=== PATIENT | male | born 1940 | race Caucasian/White ===

== ENCOUNTER 2016-12-28 23:54 | Inpatient (IN) | payer OTHER ==
[~2016-12-28] VITALS: Ht 177.8 cm; Wt 112.2 kg
--- NOTE | 2016-12-29 05:37 | Progress Note ---
Subjective General Admission History and Physical Examination Patient Name: Jessy Burgos Admission Date: December 29, 2016 Primary Care Provider: Merlene RUIZ Attending Physician: Андрей Teague M.D. Admitting Physician: Dion Bunch M.D. Cook Taco: Rajan Renteria M.D. Code Status: FULL CODE Room: [facility] Status: Inpatient, ACU SUBJECTIVE Historian: Patient Reliability: Good Chief Complaint: Abdominal pain History of Present Illness: The patient is a 76-year-old white male with a significant past medical history of COPD, degenerative joint disease, hypertension, allergic rhinitis, who presented to [facility] emergency department on the day of admission secondary to complaints of epigastric/lower chest pain. [facility] ER evaluation was consistent with acute cholecystitis, COPD, anemia, hypertension, degenerative joint disease , hyperglycemia, and allergic rhinitis. Secondary to the above, the patient was admitted by Dion Bunch M.D. surgical consultation by Dr. Rajan Renteria ( general surgery) for further evaluation and treatment. PAST MEDICAL HISTORY Illnesses: 1. COPD 2. Hypertension 3. Degenerative joint disease 4. Allergic rhinitis Allergies: 1. No Known Drug Allergies Medications: 1. Serevent dosage unknown one inhalation twice a day 2. Flovent dosage unknown one inhalation twice a day 3. Albuterol MDI 2 inhalations every 6 hours when necessary shortness of breath 4. Lisinopril dosage unknown one by mouth daily 5. Loratadine dosage unknown one by mouth daily 6. Nabumetone dosage unknown one by mouth twice a day Surgery: 1. None Injuries: 1. Fractured clavicle Hospitalizations: 1. None FAMILY HISTORY Parents: 1. Father, Dion, , 79, emphysema, 2. Mother, Ronit, , 89, also Alzheimer's dementia Siblings: 1. Male, , 73, multiple medical problems Children: 1. Female, , 9, defects 2. Female, living, 46, obesity 3. Male, living, 41, healthy Other significant family history: None SOCIAL HISTORY 1. Marital Status: 2. Scientology: None 3. Education: GED 4. 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 Occupational health exposures: Dust, radiation, asbestos, lead, mercury, loud noises, heavy lifting HABITS 1. Tobacco: 30 pack years, stopped in 1986 2. Drugs: None 3. Alcohol: None 4. Caffeine: None HEALTH SUPERVISION Item/Test 1. Vision screen: 2016 2. Cholesterol Profile: 2016 3. PSA: Unknown 4. ANGELICA: No recent 5. FOBT: No recent 6. Blood Glucose: 2016 7. Colonoscopy: No previous 8. History and physical exam: 2014 9. Audiogram: No previous 10. Mammogram: Not applicable 11. Pap/pelvic exam: Not applicable IMMUNIZATIONS: 1. Pneumococcal: 2015 2. Influenza: 2015 3. Tetanus: Previously obtained with an past 10 years ADVANCED DIRECTIVES: 1. Living well: No 2. POLST: No 3. Code Status: FULL CODE 4. Durable Power Hardware Press Operator Health care: No 5. Donor card: No REVIEW OF SYSTEMS Remarkable for those things stated in the history of present illness and past medical history. Seventeen point review of system completed with the following notable findings: Eyes: Decreased visual acuity requiring corrective lenses Respiratory: Asthma/COPD, wheezing, Physical Exam General Appearance Alert, Oriented X3, Cooperative, No acute distress HEENT Atraumatic, PERRLA, EOMI, Moist mucous membranes Lungs Scattered rhonchi otherwise CTA Neck Supple, No JVD, No masses, No thyromegaly, No lymphadenopathy, 2+ carotid pulse wo bruit Cardiovascular Regular rate and rhythm, Normal S1 and S2, No murmurs, gallops, rubs Abdomen Normal bowel sounds, No rebound, distended, epigastric-RUQ tenderness Extremities No cyanosis, No clubbing, No edema, Normal pulses Neurological Cranial nerves intact, Strength 5/5 x4 ext's, No lateralizing signs , Tremor UE Psych/Mental Status Mental status normal, Mood normal LAB Results Laboratory Tests 12/29 12/29 12/29 0350 0020 0020 Chemistry Plasma Sodium (136 - 145 mmol/L) 142 Plasma Potassium (3.5 - 5.1 mmol/L) 4.3 Plasma Chloride (98 - 107 mmol/L) 106 CO2 (Enzymatic) (21 - 32 mmol/L) 28 BUN (7 - 18 mg/dL) 28 Creatinine (0.6 - 1.3 mg/dL) 1.4 Est GFR ( Amer) (mL/min) >60 Est GFR (Non-Af Amer) (mL/min) 52.51 Glucose (70 - 110 mg/dL) 176 Plasma Calcium (8.5 - 10.1 mg/dL) 9.4 Plasma Magnesium (1.8 - 2.4 mg/dL) 2.3 Total Bilirubin (0.0 - 1.0 mg/dL) 0.9 AST (15 - 37 U/L) 129 ALT (12 - 78 U/L) 94 Alkaline Phosphatase (46 - 116 U/L) 61 Creatine Kinase (24 - 260 U/L) 262 CK-MB (CK-2) (0.5 - 3.2 ng/mL) 3.4 CK/CKMB % Calc (0.0 - 4.0 %) 1.3 Troponin (0.00 - 1.5 ng/mL) <0.05 B-Natriuretic Peptide (5 - 100 pg/ml) 31.9 Total Protein (6.4 - 8.2 g/dL) 7.6 Albumin (3.3 - 5.0 g/dL) 3.7 Coagulation INR (0.8 - 1.2) 1.0 D-Dimer, Quantitative (0.27 - 0.52 ug/mLFEU) 0.55 Hematology WBC (4.5 - 11.5 K/uL) 15.4 RBC (4.50 - 5.90 M/uL) 4.32 Hgb (13.5 - 17.5 gm/dL) 13.4 Hct (41.0 - 53.0 %) 40.2 MCV (80 - 100 fL) 93 MCH (26 - 34 pg) 31 RDW (11.6 - 14.8 %) 13.3 Neut % (Auto) (50 - 75 %) 78.0 Lymph % (Auto) (25 - 40 %) 14.4 [place] % (Auto) (3 - 14 %) 5.1 Eos % (Auto) (0 - 4 %) 2.0 Baso % (Auto) (0 - 2 %) 0.5 Plt Count, EDTA (150 - 400 K/uL) 343 PUBS MCHC (31 - 37 g/dL) 33 Urines Urine Color YELLOW Urine Appearance CLEAR Urine pH (5.0 - 8.0) 5.5 Ur Specific [place] (1.010 - 1.030) <= 1.005 Urine Protein (NEGATIVE) NEGATIVE Urine Ketones (NEGATIVE) TRACE Urine Blood (NEGATIVE) NEGATIVE Urine Nitrite (NEGATIVE) NEGATIVE Urine Bilirubin (NEGATIVE) NEGATIVE Urine Urobilinogen (0.2 - 1.0 EU/dL) 0.2 Ur Leukocyte Esterase (NEGATIVE) NEGATIVE Urine RBC (0 - 1 rbc/hpf) 0-1 Urine WBC (0 - 1 wbc/hpf) 0-1 Ur Epithelial Cells (0 - 5 EPI/hpf) 0-1 Urine Bacteria (NONE SEEN) NONE SEEN Urine Glucose (NEGATIVE) NEGATIVE Urine Comment CULT NOT INDICATED 12/29 0001 Chemistry Lipase (73 - 393 U/L) 186 Assessment and Plan Problem List 1. Acute cholecystitis Status Acute Onset Date 12/27/16 Plan -Patient admitted with findings of acute cholecystitis -Zosyn 3.375 g IV every 6 hours -Dr. Renteria consulted, probable cholecystectomy today -Nothing by mouth -IV fluid support 2. COPD (chronic obstructive pulmonary disease) Status Chronic Onset Date Unknown Plan -Patient with long-standing history of COPD -DuoNeb, albuterol, Flovent -Supplemental oxygen as necessary -Arterial blood gas preoperatively -Monitor 3. Hypertension Status Chronic Onset Date Unknown Plan -Patient with history of hypertension -Blood pressure adequately controlled at this time, BP 123/61 mmHg -Continue outpatient medical regimen as appropriate -Low-salt diet when taking well orally -Monitor 4. DJD (degenerative joint disease) Status Chronic Onset Date Unknown Plan -Patient with history of degenerative joint disease -Not problematic at this time -Continue outpatient medical regimen when taking well orally 5. Anemia Status Acute Onset Date Unknown Plan -Patient with mild normocytic anemia -Check iron studies, B12, folate -Monitor 6. Hyperglycemia Status Acute Onset Date Unknown Plan -patient with findings of hyperglycemia -Check hemoglobin A1c -Blood sugar before meals at bedtime -Insulin sliding scale as necessary -Monitor -Consistent carbohydrate diet when taking orally 7. Prerenal azotemia Status Acute Onset Date Unknown Plan -Azotemia suggestive of prerenal azotemia -BUN/creatinine 28/1.4 -IV fluid therapy -Monitor 8. Rhabdomyolysis Status Acute Onset Date Unknown Plan -Patient with findings of mild rhabdomyolysis -Admission CPK 262, normal MB percent -IV fluid therapy -Monitor Current status: Fair, stable Anticipated discharge date: Anticipated discharge in 2-3 days Anticipated discharge placement: Home Patient care time: Time in chart review, patient interview, physical exam, CPOE, and care documentation: 70 mins Visit to patient today: 2 Complexity of care: High DVT prophylaxis: SCD E&M Codes Admission: Inpt-High/70460
--- NOTE | 2016-12-29 06:08 | Progress Note ---
Subjective General ADVANCED CARE PLAN History of Present Illness The patient is a 76-year-old white male with a significant past medical history of COPD, degenerative joint disease, hypertension, allergic rhinitis, who presented to [facility] emergency department on the day of admission secondary to complaints of epigastric/lower chest pain. [facility] ER evaluation was consistent with acute cholecystitis, COPD, anemia, hypertension, degenerative joint disease , hyperglycemia, and allergic rhinitis. Secondary to the above, the patient was admitted by Dion Bunch M.D. with surgical consultation by Dr. Rajan Renteria ( general surgery) for further evaluation and treatment. For other history present illness, past medical history, family history, social history, review of systems, and admission physical examination please see the patient's history and physical examination and ER visit note in the patient's medical record. A discussion was undertaken with the patient regarding previous advance care arrangements/decisions. The following advanced directives were noted by the patient and discussed with me at the time of admission. ADVANCED DIRECTIVES: 1. Living well: No 2. POLST: No 3. CODE STATUS: FULL CODE 4. Durable Power Interventional Physiatrist [facility] care: No 5. Donor card: No The patient has expressed interest in pursuing full resuscitative efforts at the time of cardiopulmonary arrest. The patient's wishes were documented in the chart and orders regarding the patient's wishes entered into the [employer] CPOE system. The "Advance Care Plan Document" was distributed to patient to discuss with his family. 15-30 minutes was spent in performing the above tasks and documentation of the patient's advanced care plan.
--- NOTE | 2016-12-29 06:08 | Progress Note ---
Subjective General ADVANCED CARE PLAN History of Present Illness The patient is a 76-year-old white male with a significant past medical history of COPD, degenerative joint disease, hypertension, allergic rhinitis, who presented to [facility] emergency department on the day of admission secondary to complaints of epigastric/lower chest pain. [facility] ER evaluation was consistent with acute cholecystitis, COPD, anemia, hypertension, degenerative joint disease , hyperglycemia, and allergic rhinitis. Secondary to the above, the patient was admitted by Dion Bunch M.D. with surgical consultation by Dr. Rajan Renteria ( general surgery) for further evaluation and treatment. For other history present illness, past medical history, family history, social history, review of systems, and admission physical examination please see the patient's history and physical examination and ER visit note in the patient's medical record. A discussion was undertaken with the patient regarding previous advance care arrangements/decisions. The following advanced directives were noted by the patient and discussed with me at the time of admission. ADVANCED DIRECTIVES: 1. Living well: No 2. POLST: No 3. CODE STATUS: FULL CODE 4. Durable Power Undercollar Maker [facility] care: No 5. Donor card: No The patient has expressed interest in pursuing full resuscitative efforts at the time of cardiopulmonary arrest. The patient's wishes were documented in the chart and orders regarding the patient's wishes entered into the [employer] CPOE system. The "Advance Care Plan Document" was distributed to patient to discuss with his family. 15-30 minutes was spent in performing the above tasks and documentation of the patient's advanced care plan.
--- NOTE | 2016-12-29 06:29 | ED NURSING NOTES ---
Clinical Report - Nurses [facility] [address] [place] [address] 12/28/2016 23:55 Patient: Alfredo GRIFFIN TRIAGE Triage time 2358. Acuity: LEVEL 2. Chief Complaint: CHEST PAIN. Alert. SEPSIS SCREEN: Sepsis Screen. Negative (no infection suspected/documented). --00:28 Miguel A Corrales R.N. 23:58 12/28/16. BP: 152/71. HR: 58. RR: 18. O2 saturation: 96%. Temp: 97.6 F. Pain level now: 04/12. --00:28 Miguel A Corrales R.N. Weight: 112.4 kg stated. Height/Length: 70.5 inches Per Patient. BMI: 35.1. --00:22 Miguel A Corrales R.N. Medications Lisinopril Oral (pt munsure of dose ). --00:06 Miguel A Corrales R.N. Loratadine Oral (pt unsure of dose ). --00:08 Miguel A Corrales R.N. Nabumetone Oral (pt unsure of dose ). --00:08 Miguel A Corrales R.N. Tylenol Oral. --00:08 Miguel A Corrales R.N. Multi Vitamin Daily Oral. --00:09 Miguel A Corrales R.N. Flovent Diskus Inhalation (Aerosol Powder Breath Activated 50 mcg/blist), 2 x daily. --00:24 Miguel A Corrales R.N. Serevent Diskus Inhalation (Aerosol Powder Breath Activated 50 mcg/dose), 2x a day. --00:25 Miguel A Corrales R.N. Albuterol Sulfate Inhalation 2 puffs, PRN. --00:26 Miguel A Corrales R.N. Allergies No Known Drug Allergy. --00:11 Miguel A Corrales R.N. Medication/allergy information source: the patient. --00:28 Miguel A Corrales R.N. History Arrived by private vehicle. Historian: patient. Unaccompanied. Primary physician (CROW). Onset. (about 1800). Treatment PROFESSIONAL DEVELOPMENT INSTRUCTOR: (TUMS). PAST MEDICAL HX: Immunizations: up-to-date. SOCIAL HX: Smoker- current status unknown. Occasional alcohol use. No drug use. No infectious disease exposure. ABUSE ASSESSMENT: No report of abuse. FALL RISK ASSESSMENT: Fall risk assessment completed. No fall risk identified. NUTRITIONAL RISK ASSESSMENT: The nutritional risk assessment revealed no deficiencies. FUNCTIONAL ASSESSMENT: Functional assessment: no impairments noted. LEARNING NEEDS ASSESSMENT: The learning needs assessment revealed no barriers. SKIN INTEGRITY ASSESSMENT: Skin integrity risk assessment completed. No skin integrity risk identified. --00:28 Miguel A Corrales R.N. PROBLEMS: Arthritis. Hypertension. --00:13 Miguel A Corrales R.N. Asthma. --00:26 Miguel A Corrales R.N. ADDITIONAL SURGERIES: no known surgeries. Interventions ID band on patient. To treatment room. --00:28 Miguel A Corrales R.N. PHYSICAL ASSESSMENT 23:58. Ambulatory to room. Patient gowned. GENERAL / NEURO / PSYCH: Alert. Oriented X 4. HEENT: Mucous membranes are pink. RESPIRATORY: Respirations not labored. SKIN: Skin is warm and dry. Normal skin turgor. --00:28 Miguel A Corrales R.N. NURSING PROGRESS NOTES 00:00. Head of bed elevated. Two patient identifiers checked. Call light placed in reach. Side rails up x 1. Bed placed in lowest position. Brakes of bed on. --00:14 Miguel A Corrales R.N. 00:02. EKG time: (0002). EKG was performed by a tech and shown to the ED physician. --00:14 Miguel A Corrales R.N. 00:10 12/29/2016 Aspirin PO 325 mg given. Allergies verified and confirmed 5 rights. --00:15 Miguel A Corrales R.N. 00:12 Patient vomited - emesis bag tissue and wet wash rag provided. --00:15 Miguel A Corrales R.N. 00:16 12/29/2016 Site #1 started via IV in the left antecubital space with an 20g angiocath, with aseptic technique and good blood return; one attempt. Blood drawn: rainbow set. Labeled in the presence of the patient and sent to the lab. Saline lock flushed with 10 mL saline. --00:16 Miguel A Corrales R.N. 00:17 12/29/16. BP: 157/67. HR: 54. --00:17 Miguel A Corrales R.N. 00:17 12/29/2016 Nitroglycerin SL 0.4 mg given. Allergies verified and confirmed 5 rights. --00:18 Miguel A Corrales R.N. 00:19 12/29/2016 Zofran (Ondansetron HCl) IVP 4 mg given over 2 minute(s) via site #1. Allergies verified and confirmed 5 rights. IV patency established. IV site checked: no pain, redness, or swelling. IV flushed thoroughly pre- and post-medication administration. --00:19 Miguel A Corrales R.N. 00:20. Portable chest x-ray performed. --00:22 Miguel A Corrales R.N. 00:21. Oxygen administered by nasal cannula at 2 liters. --00:22 Miguel A Corrales R.N. 00:26 12/29/16. BP: 129/60. HR: 59. Pain level now: 04/12. --00:26 Miguel A Corrales R.N. 00:27 12/29/2016 Nitroglycerin SL 0.4 mg given. Allergies verified and confirmed 5 rights. --00:27 Miguel A Corrales R.N. 00:30 Patient complaining of upper back pain. --00:31 Miguel A Corrales R.N. 00:31 12/29/16. BP: 96/48. HR: 45. Pain level now: 04/12. Additional comments: states pain is worse . --00:32 Miguel A Corrales R.N. <<STRICKEN ENTRY-- 00:37 12/29/2016 Started bag #1 1000 mL IV Fluids IV NS (Saline); at 1000 mL/hr over 15 minute(s) via site #1 via IV pump. Allergies verified and confirmed 5 rights. IV patency established. IV site checked: no pain, redness, or swelling. IV flushed thoroughly pre- and post-medication administration. --00:40 Miguel A Corrales R.N. --END STRIKE>> Correction. --00:56 Miguel A Corrales R.N. 00:38 12/29/16. BP: 73/42. HR: 46. Pain level now: 04/12. --00:40 Miguel A Corrales R.N. 00:40 12/29/16. BP: 78/43. HR: 45. Pain level now: 04/12. --00:44 Miguel A Corrales R.N. 00:44 12/29/16. BP: 98/57. HR: 49. RR: 14. O2 saturation: 95% on nasal cannula at 2 liters/minute. Pain level now: 04/12. --00:44 Miguel A Corrales R.N. 00:34 Dr. Meneses informed. --00:44 Miguel A Corrales R.NGiles 00:37 12/29/2016 Started bag #1 1000 IV Fluids IV NS (Saline); at 1000 mL/hr over 15 minute(s) via site #1 via IV pump. Allergies verified and confirmed 5 rights. IV patency established. IV site checked: no pain, redness, or swelling. IV flushed thoroughly pre- and post-medication administration (Dr. Meneses; VERBAL ORDER CHANGE TO 500ML BOLUS). --00:56 Miguel A Corrales R.N. 00:47 12/29/2016 Morphine IVP 2 mg given over 2 minute(s) via site #1. Allergies verified, confirmed 5 rights and sedative warning given to the patient. IV patency established. IV site checked: no pain, redness, or swelling. IV flushed thoroughly pre- and post-medication administration. --00:49 Miguel A Corrales R.N. 00:50 12/29/2016 Morphine IVP 2 mg given over 2 minute(s) via site #1. Allergies verified, confirmed 5 rights and sedative warning given to the patient. IV patency established. IV site checked: no pain, redness, or swelling. IV flushed thoroughly pre- and post-medication administration (Dr. Meneses verbal give now). --00:54 Miguel A Corrales R.N. 00:56 12/29/2016 Morphine IVP 2 mg given over 1 minute(s) via site #1. IV patency established. IV site checked: no pain, redness, or swelling. IV flushed thoroughly pre- and post-medication administration. --00:58 Miguel A Corrales R.N. 00:49 12/29/16. BP: 93/53. HR: 46. RR: 11. O2 saturation: 96% on nasal cannula at 2 liters/minute. Pain level now: 04/12. --00:59 Miguel A Corrales R.N. 00:52 Dr. Meneses performing bedside ultrasound. --01:02 Miguel A Corrales R.N. 01:05 12/29/16. BP: 108/48. HR: 45. RR: 15. O2 saturation: 96%. Pain level now: 04/12. --01:07 Miguel A Corrales R.N. 01:07. Patient transported to NH by stretcher with nurse and tech. --01:25 Miguel A Corrales R.N. stayed with pt while in CT. --01:26 Miguel A Corrales R.N. Patient returned from CT by stretcher with nurse and tech. --01:26 Miguel A Corrales R.N. 01:26 12/29/16. BP: 141/68. HR: 51. RR: 11. O2 saturation: 94% on nasal cannula at 2 liters/minute. Pain level now: 04/12. --01:26 Miguel A Corrales R.N. 01:28 12/29/2016 IV Fluids IV NS via IV site #1 Rate Changed: bag #1 decreased to 125 mL/hr via IV pump. IV patency established. IV site checked: no pain, redness, or swelling. IV flushed thoroughly. (500ml bolus infused). --01:28 Miguel A Corrales R.N. Cardiac rhythm: sinus bradycardia. The patient is calm and resting quietly. RESPIRATORY: No respiratory distress. SKIN: Skin is warm and dry. Skin color within normal limits. --01:34 Miguel A Corrales R.N. 01:40 12/29/16. BP: 137/64. HR: 54. RR: 12. O2 saturation: 95%. Pain level now: 04/12. --01:41 Miguel A Corrales R.N. Cardiac rhythm: sinus bradycardia. --01:41 Miguel A Corrales R.N. 01:55 12/29/16. BP: 135/60. HR: 54. RR: 11. O2 saturation: 97% on nasal cannula at 2 liters/minute. --01:56 Miguel A Corrales R.N. EKG time: (210). EKG was ordered, performed by a tech and shown to the ED physician. --02:14 Spencer Grimes, ER Recruiting Associate Cardiac rhythm: sinus bradycardia. The patient is calm and resting quietly. RESPIRATORY: No respiratory distress. SKIN: Skin is warm and dry. Skin color within normal limits. --02:27 Miguel A Corrales R.N. 02:25 12/29/16. BP: 136/72. HR: 55. RR: 14. O2 saturation: 96% on room air. Pain level now: 01/10. --02:27 Miguel A Corrales R.N. 03:34 12/29/16. ( Alivia H&P form given to patient). --03:34 Nereida Gilmore, PRETTY Tech1 03:40 12/29/16. BP: 154/70. HR: 62. RR: 17. O2 saturation: 94% on nasal cannula at 2 liters/minute. Pain level now: 12/11. --03:41 Miguel A Corrales R.N. 03:45 Patient using urinal at bedside. --03:45 Miguel A Corrales R.N. 03:50. Patient ID band checked for patient name and birthdate: patient confirmed. Clean catch urine collected with return of yellow-colored clear urine; sample sent to lab for urinalysis. Specimen labeled in the presence of the patient. --03:52 Miguel A Corrales R.N. 04:34 prior authorization technician with pt for exam. --04:44 Miguel A Corrales R.N. 04:49 12/29/2016 Started 1 gm of Ceftriaxone IVPB in bag #1 50 mL; at 150 mL/hr over 20 minute(s) via site #1 via IV pump. Allergies verified and confirmed 5 rights. IV patency established. IV site checked: no pain, redness, or swelling. IV flushed thoroughly pre- and post-medication administration. --04:51 Lulu Mtz R.N. 05:08 12/29/2016 Ceftriaxone IVPB Discontinued: bag #1 infused. Total amount infused: 50 mL. IV patency established. IV site checked: no pain, redness, or swelling. IV flushed thoroughly. --05:08 Miguel A Corrales R.N. 05:09 Dr. Bunch with patient for exam. --05:09 Miguel A Corrales R.N. 06:16 12/29/2016 IV Fluids IV NS Discontinued: bag #1 infused. Total amount infused: 1000 mL. IV patency established. IV site checked: no pain, redness, or swelling. IV flushed thoroughly. --06:16 Miguel A Corrales R.N. DISPOSITION / DISCHARGE Condition at departure: improved and stable. Admitted to Acute Care. Patient's personal items include: glasses, Other belongings; items were placed in belongings bag and transported with the patient. He did not have contacts, dentures or a hearing aid. FALL RISK ASSESSMENT: Fall risk assessment completed. No fall risk identified. --05:48 Miguel A Corrales R.N. 05:43 12/29/16. BP: 138/54. HR: 65. RR: 16. O2 saturation: 93% on room air. Pain level now: 5/10. --05:48 Miguel A Corrales R.N. Report was given via a phone call. Report included patient's care, treatment, medications, reviewed medication reconcilliation, and condition (including any recent changes or anticipated changes). All questions were answered. Report was acknowledged. (Jacob WORRELLcardiac care nurse). --06:12 Miguel A Corrales R.N. Transported via stretcher by [employer]. --06:13 Miguel A Corrales R.N. Departure time: 06:24. --06:28 Miguel A Corrales R.N. Locked/Released at 12/29/2016 6:33 by Miguel A Corrales R.N.
--- NOTE | 2016-12-29 06:29 | ED ORDER SUMMARY ---
..... Patient: Alfredo GRIFFIN OrderSheet [facility] VisitID: [id number] [address] [place] [address] 76y, M Registration Date/Time: 12/28/2016 ORDER SHEET Weight: 112.4 kg (stated) Allergies: No Known Drug Allergy GENERAL ORDERS: Chest 1V Urgent (00:11 12/29/2016 Estephanie LEAL) (Ack 0:14 ALawrence ER Tech1) (0:24 ALawrence ER Tech1) Blast Furnace Supervisor (Continuous) (00:11 12/29/2016 Estephanie LEAL) (0:13 ALawrence ER Tech1) PT with INR Urgent (00:12 12/29/2016 Estephanie LEAL) (Ack 0:14 ALawrence ER Tech1) (0:47 JQuivey R.N.) Cardiac Panel Stat (00:12 12/29/2016 Estephanie LEAL) (Ack 0:14 ALawrence ER Tech1) (0:47 JQuivey R.N.) BNP Urgent (00:12 12/29/2016 Estephanie LEAL) (Ack 0:14 ALawrence ER Tech1) (0:47 JQuivey R.N.) D-Dimer Urgent (00:12 12/29/2016 Estephanie LEAL) (Ack 0:14 ALawrence ER Tech1) (0:47 JQuivey R.N.) Oxygen (2 L/min) (NC) (00:12 12/29/2016 Estephanie LEAL) (0:21 JQuivey R.N.) Pulse oximeter (00:12 12/29/2016 Estephanie LEAL) (0:13 ALawrence ER Tech1) EKG - ER Stat (00:12 12/29/2016 Estephanie LEAL) (0:13 ALawrence ER Tech1) CTA Thorax/Abdomen/Pelvis (Yes) (chart) Urgent (00:54 12/29/2016 Estephanie LEAL) (Ack 1:01 ALawrence ER Tech1) (1:27 JQuivey R.N.) EKG - RT Repeat Stat (02:07 12/29/2016 JQuivey R.N. verbal order read back to RRussell MD) (2:12 ALawrence ER Tech1) UA-Culture if indicated Urgent (03:10 12/29/2016 Estephanie LEAL) (Ack 3:23 ALawrence ER Tech1) (3:52 JQuivey R.N.) Lipase Urgent (03:10 12/29/2016 Estephanie LEAL) (3:23 ALawrence ER Tech1) - (Dr Alivia peng) (03:11 12/29/2016 Estephanie LEAL) (Ack 3:23 ALawrence ER Tech1) (3:52 JQuivey R.N.) US Abdomen Limited (Yes) Urgent (03:28 12/29/2016 Estephanie LEAL) (Ack 3:30 ALawrence ER Tech1) (4:52 JQuivey R.N.) MEDICATION ORDERS: Aspirin PO 325 mg (NOW) (00:11 12/29/2016 Estephanie LEAL) (0:15 JQuivey R.N.) NitroGLYCERIN SL 0.4 mg (NOW, x3 PRN Chest Pain) (00:12 12/29/2016 Estephanie LEAL) (0:18 JQuivey R.N.) IV FLUIDS: IV Saline Lock (00:12 12/29/2016 Estephanie LEAL) (0:20 JQuivey R.N.) Zofran IV 4 mg (NOW) (00:19 12/29/2016 JQuivey R.N. per protocol) (0:19 JQuivey R.N.) IV NS : initial bolus 250 mL (1000 mL/hr), then 125 mL/hr (NOW) (00:39 12/29/2016 JQuivey R.N. verbal order read back to Estephanie LEAL) (0:40 JQuivey R.N.) Morphine IV 2 mg (repeat 2 mg in 15 min) (00:48 12/29/2016 JQuivey R.N. verbal order read back to Estephanie LEAL) (0:49 JQuivey R.N.) Morphine IV 2 mg (NOW) (00:58 12/29/2016 JQuivey R.N. verbal order read back to Estephanie LEAL) (0:58 JQuivey R.N.) Ceftriaxone IV 1 gm/50mL (NOW) (04:44 12/29/2016 Estephanie LEAL) (Ack 4:45 David Howard) (4:51 David Howard) ORDER SHEET NOTES: [Electronically signed by Miguel A Corrales R.N. (06:33 12/29/2016)] [Electronically signed by Kirk Funk MD (16:03 12/29/2016)] [Electronically locked/signed by Miguel A Corrales R.N. (06:33 12/29/2016)]
--- NOTE | 2016-12-29 06:29 | ED CLINICAL REPORT ---
Clinical Report - Physicians/Mid Levels [facility] [address] [place] [address] 12/28/2016 23:55 Patient: Alfredo GRIFFIN Time Seen: 00:11. Arrived- By private vehicle. Historian- patient. HISTORY OF PRESENT ILLNESS Chief Complaint: CHEST PAIN. At its maximum, severity described as severe. When seen in the E.D., severity described as severe. Modifying factors- worsened by movement. Not relieved by anything. This started at about 6 PM and is still present. It was gradual in onset and has been constant. Onset during light activity. It is described as pressure, tightness and "pain" and it is described as located in the central chest area and radiating to the epigastrum and upper back. The patient has had difficulty breathing and nausea and has experienced diaphoresis. No vomiting. Similar symptoms previously: None. Recent medical care: The patient was seen recently by a health care provider. ( Hematuria 3 days ago at [facility] - Started on antibiotic). REVIEW OF SYSTEMS No fever, cough, pedal edema or edema or chills. No fever, eye irritation, ear pain, sore throat or cough. No palpitations, black stools, bloody stools, constipation or diarrhea. No vomiting, skin rash, alteration in mental status, headache or difficulty with urination. The patient has had chest pain, difficulty breathing, abdominal pain and nausea. The patient has had hematuria. He has had moderate upper back pain. PAST HISTORY PCP: Dr Kt Greene [facility], formerly Dr Dwyer Ops: None Hosp: For concussion as 21 year old Illnesses: Asthma, hypertension. Additional Surgeries: no known surgeries. Medications: Albuterol Sulfate Inhalation 2 puffs, PRN. Serevent Diskus Inhalation (Aerosol Powder Breath Activated 50 mcg/dose), 2x a day. Flovent Diskus Inhalation (Aerosol Powder Breath Activated 50 mcg/blist), 2 x daily. Multi Vitamin Daily Oral. Tylenol Oral. Nabumetone Oral (pt unsure of dose ). Loratadine Oral (pt unsure of dose ). Lisinopril Oral (pt munsure of dose ). Allergies: No Known Drug Allergy. ADDITIONAL NOTES The nursing notes have been reviewed. PHYSICAL EXAM Vital Signs: 12/29/2016 05:43 BP: 138/54. HR: 65. RR: 16. O2 saturation: 93%. Pain level now: 12/29/2016 03:40 BP: 154/70. HR: 62. RR: 17. O2 saturation: 94%. Pain level now: 12/29/2016 02:25 BP: 136/72. HR: 55. RR: 14. O2 saturation: 96%. Pain level now: 12/29/2016 01:55 BP: 135/60. HR: 54. RR: 11. O2 saturation: 97%. 12/29/2016 01:40 BP: 137/64. HR: 54. RR: 12. O2 saturation: 95%. Pain level now: 12/29/2016 01:26 BP: 141/68. HR: 51. RR: 11. O2 saturation: 94%. Pain level now: 12/29/2016 01:05 BP: 108/48. HR: 45. RR: 15. O2 saturation: 96%. Pain level now: 12/29/2016 00:49 BP: 93/53. HR: 46. RR: 11. O2 saturation: 96%. Pain level now: 12/29/2016 00:44 BP: 98/57. HR: 49. RR: 14. O2 saturation: 95%. Pain level now: 12/29/2016 00:40 BP: 78/43. HR: 45. Pain level now: 12/29/2016 00:38 BP: 73/42. HR: 46. Pain level now: 12/29/2016 00:31 BP: 96/48. HR: 45. Pain level now: 12/29/2016 00:26 BP: 129/60. HR: 59. Pain level now: 12/29/2016 00:17 BP: 157/67. HR: 54. 12/28/2016 23:58 BP: 152/71. HR: 58. RR: 18. O2 saturation: 96%. Temp: 97.6 F. Pain level now: 10/10. Appearance: Alert. Patient in moderate distress. (to severe). Eyes: Pupils equal, round and reactive to light. Eyes normal inspection. ENT: Pharynx normal. Respiratory: No respiratory distress. Breath sounds normal. Chest nontender. Abdomen: Moderate tenderness in the upper abdomen. Mild guarding present. Bowel sounds normal. Moderately obese. No rebound tenderness. Skin: Skin warm. Normal skin color. Extremities: Extremities exhibit normal ROM. No lower extremity edema. Neuro: No alteration in mental status. LABS, X-RAYS, AND EKG EKG: No acute process. No acute ischemia. Chest X-ray: (Normal aorta, posss. LL infiltrate). Abdominal CT: IMPRESSION: 1. Normal thoracic aorta without evidence of pathology. 2. Distended gallbladder with a stone in the neck. An ultrasound has been performed. 3. Mild wall thickening of the colon at the hepatic flexure, may be mild reactive colitis. 4. No pulmonary embolus. 5. Sigmoid diverticulosis. 6. Mild to moderate mid and distal abdominal aortic atherosclerosis without significant vascular stenosis. 7. Preliminary report by Dr. Kaiser Young of [facility] radiology. Abdominal Sonogram: (Per [place]: PROCEDURE: US ABDOMEN ULTRASOUND-LIMITED INDICATION: RUQ PAIN TECHNIQUE: Hernandez scale and color Doppler sonographic images were obtained of the right upper quadrant. COMPARISON: CTA performed the same day FINDINGS: The gallbladder is distended and contains a collection of nonmobile calcification, either one large over a few smaller stones, together measuring up to 3.2 cm at the gallbladder neck. The gallbladder wall is abnormally thickened measuring 7 mm. There is slight gallbladder wall hyperemia and a small amount of pericholecystic fluid. There was a positive Mejía's sign per the technologist. The extrahepatic common duct was not visible secondary to lack of good acoustic window. The liver is normal in size, contour, and echotexture. No mass or biliary dilatation. The visible portion of the inferior vena cava, abdominal aorta, and portal vein appear normal with appropriate direction of flow in the portal vein. The pancreas was not well seen due to lack of good acoustic window. The right kidney is normal measuring 11.0 cm and contains an upper pole parapelvic cyst measuring 3.1 cm. No free fluid in the right upper quadrant. IMPRESSION: 1. Cholelithiasis and findings suggestive of acute cholecystitis. 2. Suboptimal visualization of the common duct due to lack of good acoustic window. 3. Right renal parapelvic cyst.). Laboratory Tests: UA-Culture if indicated: (NICKIE: 12/29/2016 03:50) ( [facility] 12/29/2016 04:02) Final results Test Result Flag Units (Reference) URINE COLOR YELLOW URINE APPEARANCE CLEAR URINE GLUCOSE NEGATIVE (NEGATIVE) URINE BILIRUBIN NEGATIVE (NEGATIVE) URINE KETONE TRACE (NEGATIVE) URINE SPECIFIC GRAVITY <= 1.005 L (1.010-1.030) URINE PH 5.5 (5.0-8.0) URINE PROTEIN NEGATIVE (NEGATIVE) URINE UROBILINOGEN 0.2 EU/dL (0.2-1.0) URINE NITRITE NEGATIVE (NEGATIVE) URINE BLOOD NEGATIVE (NEGATIVE) URINE LEUK ESTERASE NEGATIVE (NEGATIVE) URINE RBC 0-1 rbc/hpf (0-1) URINE WBC 0-1 wbc/hpf (0-1) URINE EPITHELIAL CELLS 0-1 EPI/hpf (0-5) URINE BACTERIA NONE SEEN (NONE SEEN) URINE COMMENT CULT NOT INDICATED URINE CULTURES ARE SET-UP BASED ON THE FOLLOWING CRITERIA:POSITIVE NITRITEPOSITIVE LEUKOCYTE ESTERASEGREATER THAN 10 WHITE BLOOD CELLSMODERATE (2+) OR GREATER BACTERIA CBC w Diff: (NICKIE: 12/29/2016 00:20) ( [facility] 12/29/2016 00:36) Final results Test Result Flag Units (Reference) WHITE BLOOD COUNT 15.4 H K/uL (4.5-11.5) RED BLOOD COUNT 4.32 L M/uL (4.50-5.90) HEMOGLOBIN 13.4 L gm/dL (13.5-17.5) HEMATOCRIT 40.2 L % (41.0-53.0) MEAN CELL VOLUME 93 fL (80-100) MEAN CORPUSCULAR HGB 31 pg (26-34) MEAN CORPUSCULAR HGB CONC 33 g/dL (31-37) RED CELL DISTRIBUTION WIDTH 13.3 % (11.6-14.8) PLATELET COUNT 343 K/uL (150-400) NEUTROPHIL % 78.0 H % (50-75) LYMPH % 14.4 L % (25-40) MONO % 5.1 % (3-14) EOSINOPHIL % 2.0 % (0-4) BASOPHIL % 0.5 % (0-2) PT with INR: (NICKIE: 12/29/2016 00:20) ( [facility] 12/29/2016 00:40) Final results Test Result Flag Units (Reference) INR 1.0 (0.8-1.2) Low Intensity Therapy: INR 1.5-2.0 PT range 18.5-23.1Mod.Intensity Therapy: INR 2.0-3.0 PT range 23.1-31.5High Intensity Therapy: INR 2.5-3.5 PT range 27.4-35.5High Intensity Therapy 2: INR 3.0-4.0 PT range 31.5-39.3 D-DIMER QUANTITATIVE 0.55 H ug/mLFEU (0.27-0.52) The primary value of this quantitative assay relates toits negative predictive value (i.e. exclusion) of pulmonaryembolism/deep vein thrombosis/DIC.Elevated levels of d-dimer may also occur with:, age, cancer, inflammation, liver disease,post-op, infection, hematoma, coronary disease, peripheralarteriopathy, bleeding disorders and thrombolytic treatment.Results should be correlated with other clinical andradiological data.Testing Methodology: Latex Immunoassay Lipase: (NICKIE: 12/29/2016 00:01) ( [facility] 12/29/2016 03:25) Final results Test Result Flag Units (Reference) LIPASE 186 U/L (73-393) BNP: (NICKIE: 12/29/2016 00:20) ( [facility] 12/29/2016 00:55) Final results Test Result Flag Units (Reference) B-TYPE NATRIURETIC PEPTIDE 31.9 pg/ml (5-100) CHEM 13 PANEL: (NICKIE: 12/29/2016 00:20) ( [facility] 12/29/2016 01:05) Final results Test Result Flag Units (Reference) GLUCOSE 176 H mg/dL (70-110) BUN 28 H mg/dL (7-18) CREATININE 1.4 H mg/dL (0.6-1.3) Estimated GFR 52.51 mL/min Estimated GFR- >60 mL/min Note: Persistent reduction over 3 months in eGFR<60 mL/min/1.73 m2 defines CKD. Patients with eGFR values>=60 mL/min/1.73 m2 may also have CKD if evidence ofpersistent proteinuria. Additional information may be foundat www.kidney.org. SODIUM 142 mmol/L (136-145) POTASSIUM 4.3 mmol/L (3.5-5.1) CHLORIDE 106 mmol/L (98-107) CARBON DIOXIDE 28 mmol/L (21-32) CALCIUM 9.4 mg/dL (8.5-10.1) TOTAL PROTEIN 7.6 g/dL (6.4-8.2) ALBUMIN 3.7 g/dL (3.3-5.0) BILIRUBIN, TOTAL 0.9 mg/dL (0.0-1.0) ALKALINE PHOSPHATASE 61 U/L (46-116) AST (SGOT) 129 H U/L (15-37) ALT (SGPT) 94 H U/L (12-78) CPK 262 H U/L (24-260) MAGNESIUM 2.3 mg/dL (1.8-2.4) CK-MB 3.4 H ng/mL (0.5-3.2) %CKMB 1.3 % (0.0-4.0) TROPONIN I <0.05 L ng/mL (0.00-1.5) TROPONIN REFERENCE RANGE:<0.1 NEGATIVE0.1-1.5 INDETERMINANT>1.5 POSITIVE . PROGRESS AND PROCEDURES Course of Care: Pt with severe chest and epigastric pain with radiation to back. Pre test DDX. ACS, TA Dissection, AAA with rupture, PE 00:40 12/29/16. chest x-ray shows a normal aorta there is an equivocal left lobe infiltrate. The d-dimer is elevated. the patient is given aspirin and 2 sublingual nitroglycerin. He becomes hypotensive and diaphoretic. This is treated with normal saline. His hypotension resolves and he is given morphine for pain. Bedside ultrasound To rule out abdominal aortic aneurysm was attempted by the emergency physician. The patient's habitus makes this an nondiagnostic test. 01:37 12/29/16. Looked at the CT. ? proximal aortic problem. Called water pollution control technician to contact radiologist to confirm or deny 03:28 12/29/16. Dr Bunch requests US and will admit. 04:45 12/29/16. Acute cholecystitis on ultrasound. Discussed with Alivia. Dexter paged and informed of patient's admission. Dr. Bunch tells me he has written complete admission orders. Critical care performed (45 minutes). Time is exclusive of separately billable procedures. Time includes: direct patient care, patient reassessment, coordination of patient care, interpretation of data (laboratory data and chest xrays), medical consultation and documentation of patient care- see progress notes. Disposition: Admitted. CLINICAL IMPRESSION ACUTE CHOLECYSTITIS ACUTE CHEST PAIN ACUTE ABDOMINAL PAIN. (Electronically signed by Kirk Funk MD 12/29/2016 16:03)
--- NOTE | 2016-12-29 06:29 | ED ORDER SUMMARY ---
..... Patient: Alfredo GRIFFIN OrderSheet [facility] VisitID: [id number] [address] [place] [address] 76y, M Registration Date/Time: 12/28/2016 ORDER SHEET Weight: 112.4 kg (stated) Allergies: No Known Drug Allergy GENERAL ORDERS: Chest 1V Urgent (00:11 12/29/2016 Estephanie LEAL) (Ack 0:14 ALawrence ER Tech1) (0:24 ALawrence ER Tech1) Tap Dancer (Continuous) (00:11 12/29/2016 Estephanie LEAL) (0:13 ALawrence ER Tech1) PT with INR Urgent (00:12 12/29/2016 Estephanie LEAL) (Ack 0:14 ALawrence ER Tech1) (0:47 JQuivey R.N.) Cardiac Panel Stat (00:12 12/29/2016 Estephanie LEAL) (Ack 0:14 ALawrence ER Tech1) (0:47 JQuivey R.N.) BNP Urgent (00:12 12/29/2016 Estephanie LEAL) (Ack 0:14 ALawrence ER Tech1) (0:47 JQuivey R.N.) D-Dimer Urgent (00:12 12/29/2016 Estephanie LEAL) (Ack 0:14 ALawrence ER Tech1) (0:47 JQuivey R.N.) Oxygen (2 L/min) (NC) (00:12 12/29/2016 Estephanie LEAL) (0:21 JQuivey R.N.) Pulse oximeter (00:12 12/29/2016 Estephanie LEAL) (0:13 ALawrence ER Tech1) EKG - ER Stat (00:12 12/29/2016 Estephanie LEAL) (0:13 ALawrence ER Tech1) CTA Thorax/Abdomen/Pelvis (Yes) (chart) Urgent (00:54 12/29/2016 Estephanie LELA) (Ack 1:01 ALawrence ER Tech1) (1:27 JQuivey R.N.) EKG - RT Repeat Stat (02:07 12/29/2016 JQuivey R.N. verbal order read back to RRussell MD) (2:12 ALawrence ER Tech1) UA-Culture if indicated Urgent (03:10 12/29/2016 Estephanie LEAL) (Ack 3:23 ALawrence ER Tech1) (3:52 JQuivey R.N.) Lipase Urgent (03:10 12/29/2016 Estephanie LEAL) (3:23 ALawrence ER Tech1) - (Dr Alivia peng) (03:11 12/29/2016 Estephanie LEAL) (Ack 3:23 ALawrence ER Tech1) (3:52 JQuivey R.N.) US Abdomen Limited (Yes) Urgent (03:28 12/29/2016 Estephanie LEAL) (Ack 3:30 ALawrence ER Tech1) (4:52 JQuivey R.N.) MEDICATION ORDERS: Aspirin PO 325 mg (NOW) (00:11 12/29/2016 Estephanie LEAL) (0:15 JQuivey R.N.) NitroGLYCERIN SL 0.4 mg (NOW, x3 PRN Chest Pain) (00:12 12/29/2016 Estephanie LEAL) (0:18 JQuivey R.N.) IV FLUIDS: IV Saline Lock (00:12 12/29/2016 Estephanie LEAL) (0:20 JQuivey R.N.) Zofran IV 4 mg (NOW) (00:19 12/29/2016 JQuivey R.N. per protocol) (0:19 JQuivey R.N.) IV NS : initial bolus 250 mL (1000 mL/hr), then 125 mL/hr (NOW) (00:39 12/29/2016 JQuivey R.N. verbal order read back to Estephanie LEAL) (0:40 JQuivey R.N.) Morphine IV 2 mg (repeat 2 mg in 15 min) (00:48 12/29/2016 JQuivey R.N. verbal order read back to Estephanie LEAL) (0:49 JQuivey R.N.) Morphine IV 2 mg (NOW) (00:58 12/29/2016 JQuivey R.N. verbal order read back to Estephanie LEAL) (0:58 JQuivey R.N.) Ceftriaxone IV 1 gm/50mL (NOW) (04:44 12/29/2016 Estephanie LEAL) (Ack 4:45 David Howard) (4:51 David Howard) ORDER SHEET NOTES: [Electronically signed by Miguel A Corrales R.N. (06:33 12/29/2016)] [Electronically signed by Kirk Funk MD (16:03 12/29/2016)] [Electronically locked/signed by Miguel A Corrales R.N. (06:33 12/29/2016)]
--- NOTE | 2016-12-29 06:29 | ED CLINICAL REPORT ---
Clinical Report - Physicians/Mid Levels [facility] [address] [place] [address] 12/28/2016 23:55 Patient: Alfredo GRIFFIN Time Seen: 00:11. Arrived- By private vehicle. Historian- patient. HISTORY OF PRESENT ILLNESS Chief Complaint: CHEST PAIN. At its maximum, severity described as severe. When seen in the E.D., severity described as severe. Modifying factors- worsened by movement. Not relieved by anything. This started at about 6 PM and is still present. It was gradual in onset and has been constant. Onset during light activity. It is described as pressure, tightness and "pain" and it is described as located in the central chest area and radiating to the epigastrum and upper back. The patient has had difficulty breathing and nausea and has experienced diaphoresis. No vomiting. Similar symptoms previously: None. Recent medical care: The patient was seen recently by a health care provider. ( Hematuria 3 days ago at [facility] - Started on antibiotic). REVIEW OF SYSTEMS No fever, cough, pedal edema or edema or chills. No fever, eye irritation, ear pain, sore throat or cough. No palpitations, black stools, bloody stools, constipation or diarrhea. No vomiting, skin rash, alteration in mental status, headache or difficulty with urination. The patient has had chest pain, difficulty breathing, abdominal pain and nausea. The patient has had hematuria. He has had moderate upper back pain. PAST HISTORY PCP: Dr Kt Greene [facility], formerly Dr Dwyer Ops: None Hosp: For concussion as 21 year old Illnesses: Asthma, hypertension. Additional Surgeries: no known surgeries. Medications: Albuterol Sulfate Inhalation 2 puffs, PRN. Serevent Diskus Inhalation (Aerosol Powder Breath Activated 50 mcg/dose), 2x a day. Flovent Diskus Inhalation (Aerosol Powder Breath Activated 50 mcg/blist), 2 x daily. Multi Vitamin Daily Oral. Tylenol Oral. Nabumetone Oral (pt unsure of dose ). Loratadine Oral (pt unsure of dose ). Lisinopril Oral (pt munsure of dose ). Allergies: No Known Drug Allergy. ADDITIONAL NOTES The nursing notes have been reviewed. PHYSICAL EXAM Vital Signs: 12/29/2016 05:43 BP: 138/54. HR: 65. RR: 16. O2 saturation: 93%. Pain level now: 12/29/2016 03:40 BP: 154/70. HR: 62. RR: 17. O2 saturation: 94%. Pain level now: 12/29/2016 02:25 BP: 136/72. HR: 55. RR: 14. O2 saturation: 96%. Pain level now: 12/29/2016 01:55 BP: 135/60. HR: 54. RR: 11. O2 saturation: 97%. 12/29/2016 01:40 BP: 137/64. HR: 54. RR: 12. O2 saturation: 95%. Pain level now: 12/29/2016 01:26 BP: 141/68. HR: 51. RR: 11. O2 saturation: 94%. Pain level now: 12/29/2016 01:05 BP: 108/48. HR: 45. RR: 15. O2 saturation: 96%. Pain level now: 12/29/2016 00:49 BP: 93/53. HR: 46. RR: 11. O2 saturation: 96%. Pain level now: 12/29/2016 00:44 BP: 98/57. HR: 49. RR: 14. O2 saturation: 95%. Pain level now: 12/29/2016 00:40 BP: 78/43. HR: 45. Pain level now: 12/29/2016 00:38 BP: 73/42. HR: 46. Pain level now: 12/29/2016 00:31 BP: 96/48. HR: 45. Pain level now: 12/29/2016 00:26 BP: 129/60. HR: 59. Pain level now: 12/29/2016 00:17 BP: 157/67. HR: 54. 12/28/2016 23:58 BP: 152/71. HR: 58. RR: 18. O2 saturation: 96%. Temp: 97.6 F. Pain level now: 10/10. Appearance: Alert. Patient in moderate distress. (to severe). Eyes: Pupils equal, round and reactive to light. Eyes normal inspection. ENT: Pharynx normal. Respiratory: No respiratory distress. Breath sounds normal. Chest nontender. Abdomen: Moderate tenderness in the upper abdomen. Mild guarding present. Bowel sounds normal. Moderately obese. No rebound tenderness. Skin: Skin warm. Normal skin color. Extremities: Extremities exhibit normal ROM. No lower extremity edema. Neuro: No alteration in mental status. LABS, X-RAYS, AND EKG EKG: No acute process. No acute ischemia. Chest X-ray: (Normal aorta, posss. LL infiltrate). Abdominal CT: IMPRESSION: 1. Normal thoracic aorta without evidence of pathology. 2. Distended gallbladder with a stone in the neck. An ultrasound has been performed. 3. Mild wall thickening of the colon at the hepatic flexure, may be mild reactive colitis. 4. No pulmonary embolus. 5. Sigmoid diverticulosis. 6. Mild to moderate mid and distal abdominal aortic atherosclerosis without significant vascular stenosis. 7. Preliminary report by Dr. Kaiser Young of [facility] radiology. Abdominal Sonogram: (Per [place]: PROCEDURE: US ABDOMEN ULTRASOUND-LIMITED INDICATION: RUQ PAIN TECHNIQUE: Hernandez scale and color Doppler sonographic images were obtained of the right upper quadrant. COMPARISON: CTA performed the same day FINDINGS: The gallbladder is distended and contains a collection of nonmobile calcification, either one large over a few smaller stones, together measuring up to 3.2 cm at the gallbladder neck. The gallbladder wall is abnormally thickened measuring 7 mm. There is slight gallbladder wall hyperemia and a small amount of pericholecystic fluid. There was a positive Mejía's sign per the technologist. The extrahepatic common duct was not visible secondary to lack of good acoustic window. The liver is normal in size, contour, and echotexture. No mass or biliary dilatation. The visible portion of the inferior vena cava, abdominal aorta, and portal vein appear normal with appropriate direction of flow in the portal vein. The pancreas was not well seen due to lack of good acoustic window. The right kidney is normal measuring 11.0 cm and contains an upper pole parapelvic cyst measuring 3.1 cm. No free fluid in the right upper quadrant. IMPRESSION: 1. Cholelithiasis and findings suggestive of acute cholecystitis. 2. Suboptimal visualization of the common duct due to lack of good acoustic window. 3. Right renal parapelvic cyst.). Laboratory Tests: UA-Culture if indicated: (NICKIE: 12/29/2016 03:50) ( [facility] 12/29/2016 04:02) Final results Test Result Flag Units (Reference) URINE COLOR YELLOW URINE APPEARANCE CLEAR URINE GLUCOSE NEGATIVE (NEGATIVE) URINE BILIRUBIN NEGATIVE (NEGATIVE) URINE KETONE TRACE (NEGATIVE) URINE SPECIFIC GRAVITY <= 1.005 L (1.010-1.030) URINE PH 5.5 (5.0-8.0) URINE PROTEIN NEGATIVE (NEGATIVE) URINE UROBILINOGEN 0.2 EU/dL (0.2-1.0) URINE NITRITE NEGATIVE (NEGATIVE) URINE BLOOD NEGATIVE (NEGATIVE) URINE LEUK ESTERASE NEGATIVE (NEGATIVE) URINE RBC 0-1 rbc/hpf (0-1) URINE WBC 0-1 wbc/hpf (0-1) URINE EPITHELIAL CELLS 0-1 EPI/hpf (0-5) URINE BACTERIA NONE SEEN (NONE SEEN) URINE COMMENT CULT NOT INDICATED URINE CULTURES ARE SET-UP BASED ON THE FOLLOWING CRITERIA:POSITIVE NITRITEPOSITIVE LEUKOCYTE ESTERASEGREATER THAN 10 WHITE BLOOD CELLSMODERATE (2+) OR GREATER BACTERIA CBC w Diff: (NICKIE: 12/29/2016 00:20) ( [facility] 12/[facility]36) Final results Test Result Flag Units (Reference) WHITE BLOOD COUNT 15.4 H K/uL (4.5-11.5) RED BLOOD COUNT 4.32 L M/uL (4.50-5.90) HEMOGLOBIN 13.4 L gm/dL (13.5-17.5) HEMATOCRIT 40.2 L % (41.0-53.0) MEAN CELL VOLUME 93 fL (80-100) MEAN CORPUSCULAR HGB 31 pg (26-34) MEAN CORPUSCULAR HGB CONC 33 g/dL (31-37) RED CELL DISTRIBUTION WIDTH 13.3 % (11.6-14.8) PLATELET COUNT 343 K/uL (150-400) NEUTROPHIL % 78.0 H % (50-75) LYMPH % 14.4 L % (25-40) MONO % 5.1 % (3-14) EOSINOPHIL % 2.0 % (0-4) BASOPHIL % 0.5 % (0-2) PT with INR: (NICKIE: 12/29/2016 00:20) ( [facility] 12/29/2016 00:40) Final results Test Result Flag Units (Reference) INR 1.0 (0.8-1.2) Low Intensity Therapy: INR 1.5-2.0 PT range 18.5-23.1Mod.Intensity Therapy: INR 2.0-3.0 PT range 23.1-31.5High Intensity Therapy: INR 2.5-3.5 PT range 27.4-35.5High Intensity Therapy 2: INR 3.0-4.0 PT range 31.5-39.3 D-DIMER QUANTITATIVE 0.55 H ug/mLFEU (0.27-0.52) The primary value of this quantitative assay relates toits negative predictive value (i.e. exclusion) of pulmonaryembolism/deep vein thrombosis/DIC.Elevated levels of d-dimer may also occur with:, age, cancer, inflammation, liver disease,post-op, infection, hematoma, coronary disease, peripheralarteriopathy, bleeding disorders and thrombolytic treatment.Results should be correlated with other clinical andradiological data.Testing Methodology: Latex Immunoassay Lipase: (NICKIE: 12/29/2016 00:01) ( [facility] 12/29/2016 03:25) Final results Test Result Flag Units (Reference) LIPASE 186 U/L (73-393) BNP: (NICKIE: 12/29/2016 00:20) ( [facility] 12/29/2016 00:55) Final results Test Result Flag Units (Reference) B-TYPE NATRIURETIC PEPTIDE 31.9 pg/ml (5-100) CHEM 13 PANEL: (NICKIE: 12/29/2016 00:20) ( [facility] 12/29/2016 01:05) Final results Test Result Flag Units (Reference) GLUCOSE 176 H mg/dL (70-110) BUN 28 H mg/dL (7-18) CREATININE 1.4 H mg/dL (0.6-1.3) Estimated GFR 52.51 mL/min Estimated GFR- >60 mL/min Note: Persistent reduction over 3 months in eGFR<60 mL/min/1.73 m2 defines CKD. Patients with eGFR values>=60 mL/min/1.73 m2 may also have CKD if evidence ofpersistent proteinuria. Additional information may be foundat www.[email or web address].org. SODIUM 142 mmol/L (136-145) POTASSIUM 4.3 mmol/L (3.5-5.1) CHLORIDE 106 mmol/L (98-107) CARBON DIOXIDE 28 mmol/L (21-32) CALCIUM 9.4 mg/dL (8.5-10.1) TOTAL PROTEIN 7.6 g/dL (6.4-8.2) ALBUMIN 3.7 g/dL (3.3-5.0) BILIRUBIN, TOTAL 0.9 mg/dL (0.0-1.0) ALKALINE PHOSPHATASE 61 U/L (46-116) AST (SGOT) 129 H U/L (15-37) ALT (SGPT) 94 H U/L (12-78) CPK 262 H U/L (24-260) MAGNESIUM 2.3 mg/dL (1.8-2.4) CK-MB 3.4 H ng/mL (0.5-3.2) %CKMB 1.3 % (0.0-4.0) TROPONIN I <0.05 L ng/mL (0.00-1.5) TROPONIN REFERENCE RANGE:<0.1 NEGATIVE0.1-1.5 INDETERMINANT>1.5 POSITIVE . PROGRESS AND PROCEDURES Course of Care: Pt with severe chest and epigastric pain with radiation to back. Pre test DDX. ACS, TA Dissection, AAA with rupture, PE 00:40 12/29/16. chest x-ray shows a normal aorta there is an equivocal left lobe infiltrate. The d-dimer is elevated. the patient is given aspirin and 2 sublingual nitroglycerin. He becomes hypotensive and diaphoretic. This is treated with normal saline. His hypotension resolves and he is given morphine for pain. Bedside ultrasound To rule out abdominal aortic aneurysm was attempted by the emergency physician. The patient's habitus makes this an nondiagnostic test. 01:37 12/29/16. Looked at the CT. ? proximal aortic problem. Called cytotechnologist/histotechnologist to contact radiologist to confirm or deny 03:28 12/29/16. Dr Bunch requests US and will admit. 04:45 12/29/16. Acute cholecystitis on ultrasound. Discussed with Alivia. Dexter paged and informed of patient's admission. Dr. Bunch tells me he has written complete admission orders. Critical care performed (45 minutes). Time is exclusive of separately billable procedures. Time includes: direct patient care, patient reassessment, coordination of patient care, interpretation of data (laboratory data and chest xrays), medical consultation and documentation of patient care- see progress notes. Disposition: Admitted. CLINICAL IMPRESSION ACUTE CHOLECYSTITIS ACUTE CHEST PAIN ACUTE ABDOMINAL PAIN. (Electronically signed by Kirk Funk MD 12/29/2016 16:03)
--- NOTE | 2016-12-29 06:31 | DIAGNOSTIC IMAGING REPORT ---
PROCEDURE: CTA THORAX ABDOMEN PELVIS INDICATION: CHEST PAIN AND ABDOMINAL PAIN TECHNIQUE: 104 ml of Isovue 370 was injected intravenously and axial images were obtained of the chest, abdomen, and pelvis with 3D sagittal and coronal MIP reconstructions. COMPARISON: None. FINDINGS: Thoracic aorta is normal caliber with mild atherosclerotic calcification. No evidence of aneurysm, dissection, ulceration, or hematoma. The great vessels demonstrates normal branching pattern. Normal opacification of the pulmonary arterial tree without filling defect. The central pulmonary arteries are normal caliber. Heart size is mildly enlarged. No pericardial effusion. No adenopathy or mediastinal masses. The esophagus is normal in caliber without hiatal hernia. The airway is patent and branches normally. The lungs demonstrate mild to moderate strandy bibasilar atelectatic changes. No dense consolidations, pleural effusions or pneumothorax. Osseous structures are intact. The abdominal aorta is normal in course, contour, and caliber with moderate mixed calcified and noncalcified atherosclerosis. Renal arteries and superior mesenteric arteries are patent containing mild scattered, calcified atherosclerosis. The inferior mesenteric artery is visible and patent. Iliac bifurcations appear normal. The gallbladder is distended and contains a 2.4 cm stone at the neck. Bilateral renal parapelvic cysts, right larger than left. The right cyst measures 3.1 cm. Mild wall thickening of the hepatic flexure colon without significant pericolonic inflammation. The liver, adrenal glands, spleen, pancreas, inferior vena cava and ureters, stomach, and upper bowel loops appear normal. No inflammation or free air. Pelvic arteries are patent with mild to moderate atherosclerotic calcification. The lower bowel loops including colon and rectum demonstrate moderate sigmoid diverticulosis. Normal appendix. No surrounding inflammatory changes. Urinary bladder and reproductive structures are normal. No free fluid or adenopathy. Osseous structures demonstrate degenerative changes at the pubic symphysis and in the lumbar spine at the L2-3 level. IMPRESSION: 1. Normal thoracic aorta without evidence of pathology. 2. Distended gallbladder with a stone in the neck. An ultrasound has been performed. 3. Mild wall thickening of the colon at the hepatic flexure, may be mild reactive colitis. 4. No pulmonary embolus. 5. Sigmoid diverticulosis. 6. Mild to moderate mid and distal abdominal aortic atherosclerosis without significant vascular stenosis. 7. Preliminary report by Dr. Kaiser Young of [facility] radiology.
--- NOTE | 2016-12-29 06:33 | DIAGNOSTIC IMAGING REPORT ---
PROCEDURE: XR CHEST 1 VIEW INDICATION: CHEST PAIN TECHNIQUE: Single view chest. 0020 hours COMPARISON: None. FINDINGS: The heart size is mildly enlarged. Normal aortic contour. No central venous congestion. Bibasilar atelectatic changes. No pleural effusion or pneumothorax. The osseous structures are intact. IMPRESSION: 1. Mild cardiomegaly. 2. Bibasilar atelectatic changes.
--- NOTE | 2016-12-29 06:44 | DIAGNOSTIC IMAGING REPORT ---
PROCEDURE: US ABDOMEN ULTRASOUND-LIMITED INDICATION: RUQ PAIN TECHNIQUE: Hernandez scale and color Doppler sonographic images were obtained of the right upper quadrant. COMPARISON: CTA performed the same day FINDINGS: The gallbladder is distended and contains a collection of nonmobile calcification, either one large over a few smaller stones, together measuring up to 3.2 cm at the gallbladder neck. The gallbladder wall is abnormally thickened measuring 7 mm. There is slight gallbladder wall hyperemia and a small amount of pericholecystic fluid. There was a positive Mejía's sign per the technologist. The extrahepatic common duct was not visible secondary to lack of good acoustic window. The liver is normal in size, contour, and echotexture. No mass or biliary dilatation. The visible portion of the inferior vena cava, abdominal aorta, and portal vein appear normal with appropriate direction of flow in the portal vein. The pancreas was not well seen due to lack of good acoustic window. The right kidney is normal measuring 11.0 cm and contains an upper pole parapelvic cyst measuring 3.1 cm. No free fluid in the right upper quadrant. IMPRESSION: 1. Cholelithiasis and findings suggestive of acute cholecystitis. 2. Suboptimal visualization of the common duct due to lack of good acoustic window. 3. Right renal parapelvic cyst.
[2016-12-29 06:45] VITALS: BP 123/61
[2016-12-29] MEDS ORDERED: ALBUTEROL HFA60 DOSE IN (07:14)
[2016-12-29] MEDS ORDERED: FLOVENT DISKUS50 MCG IN (07:16)
[2016-12-29] MEDS ORDERED: SEREVENT DISKU50 MCG IN ×2 (07:18→13:30)
[2016-12-29] MEDS ORDERED: LISINOPRIL2.5 MG PO (07:19)
[2016-12-29] MEDS ORDERED: MULTIPLE VITAMIN PO (07:20)
[2016-12-29] MEDS ORDERED: LORATADINE10 MG PO (07:20)
[2016-12-29] MEDS ORDERED: NABUMETONE500 MG EN (07:22)
[2016-12-29] MEDS ORDERED: NABUMETONE500 MG PO (07:23)
[2016-12-29 10:25] VITALS: BP 121/70
[2016-12-29 15:33] VITALS: BP 127/56; BP 94/57
--- NOTE | 2016-12-29 16:04 | ED DISCHARGE INSTRUCTIONS ---
Patient: GABYAlfredo Salvador General Instructions [facility] VisitID: [id number] [address] [place] [address] 76y, M Registration Date/Time: 12/28/2016 ACUTE CHOLECYSTITIS ACUTE CHEST PAIN ACUTE ABDOMINAL PAIN. (Electronically signed by Kirk Funk MD 12/29/2016 16:03)
--- NOTE | 2016-12-29 16:04 | ED MAR SUMMARY ---
..... Medication Administration Record Located Within [facility] [address] [address] Patient: Alfredo GRIFFIN Visit ID: [id number] 76y, M Weight: 112.4 kg Height/Length: 70.5 in BMI: 35.1 ALLERGIES: No Known Drug Allergy Given 00:10 12/29/2016 Miguel A Corrales R.N. Medication Administered: ASPIRIN [PO], Dose: 325 mg PO. Medication Ordered: Aspirin PO 325 mg (NOW). Given 00:17 12/29/2016 Miguel A Corrales R.N. Medication Administered: NITROGLYCERIN [SL], Dose: 0.4 mg SL. Medication Ordered: NitroGLYCERIN SL 0.4 mg (NOW, x3 PRN Chest Pain). Given 00:19 12/29/2016 Miguel A Corrales R.N. Medication Administered: ZOFRAN [IVP] (ONDANSETRON HCL), Dose: 4 mg IVP over 2 minute(s), Site: #1 left AC. Medication Ordered: Zofran IV 4 mg (NOW). Given 00:27 12/29/2016 Miguel A Corrales R.N. Medication Administered: NITROGLYCERIN [SL], Dose: 0.4 mg SL. Medication Ordered: NitroGLYCERIN SL 0.4 mg (NOW, x3 PRN Chest Pain). Start 00:37 12/29/2016 Miguel A Corrales R.N., Stop 06:16 12/29/2016 Miguel A Corrales R.N. Medication Administered: IV NS (SALINE), Dose: IV Fluids over 15 minute(s), Rate: 1000 mL/hr, Dispensed: 1000 mL bag, Site: #1 left AC. Medication Ordered: IV NS : initial bolus 250 mL (1000 mL/hr), then 125 mL/hr (NOW). Given 00:47 12/29/2016 Miguel A Corrales R.N. Medication Administered: MORPHINE [IVP], Dose: 2 mg IVP over 2 minute(s), Site: #1 left AC. Medication Ordered: Morphine IV 2 mg (repeat 2 mg in 15 min). Given 00:50 12/29/2016 Miguel A Corrales R.N. Medication Administered: MORPHINE [IVP], Dose: 2 mg IVP over 2 minute(s), Site: #1 left AC. Medication Ordered: Morphine IV 2 mg (repeat 2 mg in 15 min). Given 00:56 12/29/2016 Miguel A Corrales R.N. Medication Administered: MORPHINE [IVP], Dose: 2 mg IVP over 1 minute(s), Site: #1 left AC. Medication Ordered: Morphine IV 2 mg (NOW). Start 04:49 12/29/2016 Lulu Mtz RTangela, Stop 05:08 12/29/2016 Miguel A Corrales RGilesN. Medication Administered: CEFTRIAXONE [IVPB], Dose: 1 gm IVPB over 20 minute(s), Rate: 150 mL/hr, Dispensed: 50 mL bag, Site: #1 left AC. Medication Ordered: Ceftriaxone IV 1 gm/50mL (NOW).
--- NOTE | 2016-12-29 16:04 | ED DISCHARGE INSTRUCTIONS ---
Patient: GABYAlfredo Salvador General Instructions [facility] VisitID: [id number] [address] [place] [address] 76y, M Registration Date/Time: 12/28/2016 ACUTE CHOLECYSTITIS ACUTE CHEST PAIN ACUTE ABDOMINAL PAIN. (Electronically signed by Kirk Funk MD 12/29/2016 16:03)
--- NOTE | 2016-12-29 16:04 | ED MED RECONCILIATION SUMMARY ---
Patient: GRIFFINAlfredo Medication Reconciliation Report [facility] VisitID: [id number] [address] [place] [address] 76y, M Registration Date/Time: 12/28/2016 Weight: 112.4 kg Height/Length: 60 in. BMI: 35.1 ALLERGIES: No Known Drug Allergy The patient's Home Medications are listed below: THE FOLLOWING MEDICATIONS NEED TO BE RECONCILED: Albuterol Sulfate Inhalation 2 puffs, PRN Flovent Diskus Inhalation (50 mcg/blist), 2 x daily Lisinopril Oral, pt munsure of dose Loratadine Oral, pt unsure of dose Multi Vitamin Daily Oral Nabumetone Oral, pt unsure of dose Serevent Diskus Inhalation (50 mcg/dose), 2x a day Tylenol Oral The source(s) of the original Home Medication information: patient The following Medications were given to the patient in the Emergency Department: Aspirin [PO] PO 325 mg, administered: 12/29/2016 12:10:00 AM Nitroglycerin [SL] SL 0.4 mg, administered: 12/29/2016 12:17:00 AM Zofran [IVP] IVP 4 mg, administered: 12/29/2016 12:19:00 AM Nitroglycerin [SL] SL 0.4 mg, administered: 12/29/2016 12:27:00 AM IV NS IV Fluids bolus 0, then 1000 mL/hr, administered: 12/29/2016 12:37:00 AM Morphine [IVP] IVP 2 mg, administered: 12/29/2016 12:47:00 AM Morphine [IVP] IVP 2 mg, administered: 12/29/2016 12:50:00 AM Morphine [IVP] IVP 2 mg, administered: 12/29/2016 12:56:00 AM Ceftriaxone [IVPB] IVPB bolus 0, then 1 gm 150 mL/hr, administered: 12/29/2016 4:49:00 AM The following Medications were prescribed to the patient: None.
--- NOTE | 2016-12-29 16:04 | ED MED RECONCILIATION SUMMARY ---
Patient: GRIFFINAlfredo Medication Reconciliation Report [facility] VisitID: [id number] [address] [place] [address] 76y, M Registration Date/Time: 12/28/2016 Weight: 112.4 kg Height/Length: 60 in. BMI: 35.1 ALLERGIES: No Known Drug Allergy The patient's Home Medications are listed below: THE FOLLOWING MEDICATIONS NEED TO BE RECONCILED: Albuterol Sulfate Inhalation 2 puffs, PRN Flovent Diskus Inhalation (50 mcg/blist), 2 x daily Lisinopril Oral, pt munsure of dose Loratadine Oral, pt unsure of dose Multi Vitamin Daily Oral Nabumetone Oral, pt unsure of dose Serevent Diskus Inhalation (50 mcg/dose), 2x a day Tylenol Oral The source(s) of the original Home Medication information: patient The following Medications were given to the patient in the Emergency Department: Aspirin [PO] PO 325 mg, administered: 12/29/2016 12:10:00 AM Nitroglycerin [SL] SL 0.4 mg, administered: 12/29/2016 12:17:00 AM Zofran [IVP] IVP 4 mg, administered: 12/29/2016 12:19:00 AM Nitroglycerin [SL] SL 0.4 mg, administered: 12/29/2016 12:27:00 AM IV NS IV Fluids bolus 0, then 1000 mL/hr, administered: 12/29/2016 12:37:00 AM Morphine [IVP] IVP 2 mg, administered: 12/29/2016 12:47:00 AM Morphine [IVP] IVP 2 mg, administered: 12/29/2016 12:50:00 AM Morphine [IVP] IVP 2 mg, administered: 12/29/2016 12:56:00 AM Ceftriaxone [IVPB] IVPB bolus 0, then 1 gm 150 mL/hr, administered: 12/29/2016 4:49:00 AM The following Medications were prescribed to the patient: None.
--- NOTE | 2016-12-29 16:04 | ED MAR SUMMARY ---
..... Medication Administration Record [facility] [address] [place] [address] Patient: Alfredo GRIFFIN Visit ID: [id number] 76y, M Weight: 112.4 kg Height/Length: 70.5 in BMI: 35.1 ALLERGIES: No Known Drug Allergy Given 00:10 12/29/2016 Miguel A Corrales R.N. Medication Administered: ASPIRIN [PO], Dose: 325 mg PO. Medication Ordered: Aspirin PO 325 mg (NOW). Given 00:17 12/29/2016 Miguel A Corrales R.N. Medication Administered: NITROGLYCERIN [SL], Dose: 0.4 mg SL. Medication Ordered: NitroGLYCERIN SL 0.4 mg (NOW, x3 PRN Chest Pain). Given 00:19 12/29/2016 Miguel A Corrales R.N. Medication Administered: ZOFRAN [IVP] (ONDANSETRON HCL), Dose: 4 mg IVP over 2 minute(s), Site: #1 left AC. Medication Ordered: Zofran IV 4 mg (NOW). Given 00:27 12/29/2016 Miguel A Corrales R.N. Medication Administered: NITROGLYCERIN [SL], Dose: 0.4 mg SL. Medication Ordered: NitroGLYCERIN SL 0.4 mg (NOW, x3 PRN Chest Pain). Start 00:37 12/29/2016 Miguel A Corrales R.N., Stop 06:16 12/29/2016 Miguel A Corrales R.N. Medication Administered: IV NS (SALINE), Dose: IV Fluids over 15 minute(s), Rate: 1000 mL/hr, Dispensed: 1000 mL bag, Site: #1 left AC. Medication Ordered: IV NS : initial bolus 250 mL (1000 mL/hr), then 125 mL/hr (NOW). Given 00:47 12/29/2016 Miguel A Corrales R.N. Medication Administered: MORPHINE [IVP], Dose: 2 mg IVP over 2 minute(s), Site: #1 left AC. Medication Ordered: Morphine IV 2 mg (repeat 2 mg in 15 min). Given 00:50 12/29/2016 Miguel A Corrales R.N. Medication Administered: MORPHINE [IVP], Dose: 2 mg IVP over 2 minute(s), Site: #1 left AC. Medication Ordered: Morphine IV 2 mg (repeat 2 mg in 15 min). Given 00:56 12/29/2016 Miguel A Corrales R.N. Medication Administered: MORPHINE [IVP], Dose: 2 mg IVP over 1 minute(s), Site: #1 left AC. Medication Ordered: Morphine IV 2 mg (NOW). Start 04:49 12/29/2016 Lulu Mtz RTangela, Stop 05:08 12/29/2016 Miguel A Corrales RGilesN. Medication Administered: CEFTRIAXONE [IVPB], Dose: 1 gm IVPB over 20 minute(s), Rate: 150 mL/hr, Dispensed: 50 mL bag, Site: #1 left AC. Medication Ordered: Ceftriaxone IV 1 gm/50mL (NOW).
[2016-12-29 18:32] VITALS: BP 136/71
[2016-12-29 22:59] VITALS: BP 149/67
[2016-12-30] VITALS (11 sets, daily range): BP systolic 129–153; BP diastolic 61–84
--- NOTE | 2016-12-30 12:42 | Progress Note ---
Subjective General Patient seen and examined. Patient will go for laparoscopic cholecystectomy shortly. Patient has no complaints overnight. Patient is doing well, his pain is well-controlled and he is ready to be operated on. Constitutional Denies: Fever, Chills, Sweats, Weakness, Malaise, Other. Eyes Denies: Pain, Vision Change, Conjunctival Inflammation, Eyelid Inflammation, Redness, Other. Respiratory Denies: Cough, Dry, SOB w/exertion, Wheezing, Hemoptysis, Pleuritic Pain, Sputum , Other. Cardiovascular Denies: Chest Pain, Palpitations, Orthopnea, PND, Edema, Light-headedness, Other. Gastrointestinal Nausea, Abdominal Pain. Denies: Vomiting, Diarrhea, Constipation, Melena, Hematochezia, Other. Genitourinary Denies: Dysuria, Frequency, Incontinence, Hematuria, Retention, Other. Musculoskeletal Denies: Neck Pain, Shoulder Pain, Arm Pain, Back Pain, Hand Pain, Leg Pain, Foot Pain, Other. Skin Denies: Rash, Lesions, Jaundice, Bruising, Other. Physical Exam Vital Signs / I&Os Vital Signs Date Time Temp Pulse Resp B/P Pulse O2 O2 Flow FiO2 Ox Delivery Rate 12/30 0940 Room Air 0.0 12/30 0708 98.8 65 20 143/69 95 Room Air 0.0 12/30 0251 98.1 59 15 129/73 95 Room Air 12/30 0030 0.0 12/29 2259 98.2 64 16 149/67 94 Room Air 12/29 1832 98.1 64 16 136/71 93 Room Air 0.0 12/29 1630 Room Air 12/29 1533 98.6 56 18 127/56 94 I&O 12/29 0800 12/29 1600 12/30 0000 Intake Total 0 1335 1880 Output Total 300 300 700 Balance -300 1035 1180 General Appearance Alert, Oriented X3, No acute distress HEENT Atraumatic, PERRLA, Moist mucous membranes Lungs Clear to auscultation Cardiovascular Regular rate and rhythm, No murmurs, gallops, rubs Abdomen Soft, No tenderness, No masses, No hepatosplenomegaly Extremities No clubbing, No edema, Normal pulses, No tenderness Skin No Breakdown Neurological Normal speech, Sensation intact, Cranial nerves intact, No lateralizing signs Psych/Mental Status Mood normal LAB Results Laboratory Tests 12/29 12/29 12/30 1748 2110 0586 Chemistry Plasma Sodium (136 - 145 mmol/L) 142 144 Plasma Potassium (3.5 - 5.1 mmol/L) 4.0 3.9 Plasma Chloride (98 - 107 mmol/L) 108 110 CO2 (Enzymatic) (21 - 32 mmol/L) 28 25 BUN (7 - 18 mg/dL) 22 16 Creatinine (0.6 - 1.3 mg/dL) 1.3 1.1 Est GFR ( Amer) (mL/min) >60 >60 Est GFR (Non-Af Amer) (mL/min) 57.20 >60 Glucose (70 - 110 mg/dL) 102 94 Plasma Calcium (8.5 - 10.1 mg/dL) 7.9 8.2 Total Bilirubin (0.0 - 1.0 mg/dL) 0.5 0.6 AST (15 - 37 U/L) 117 103 ALT (12 - 78 U/L) 180 176 Alkaline Phosphatase (46 - 116 U/L) 59 58 Creatine Kinase (24 - 260 U/L) 190 Total Protein (6.4 - 8.2 g/dL) 6.5 6.6 Albumin (3.3 - 5.0 g/dL) 3.0 3.1 Hematology WBC (4.5 - 11.5 K/uL) 7.4 9.4 RBC (4.50 - 5.90 M/uL) 3.65 3.77 Hgb (13.5 - 17.5 gm/dL) 11.2 11.8 Hct (41.0 - 53.0 %) 34.6 35.4 MCV (80 - 100 fL) 95 94 MCH (26 - 34 pg) 31 31 RDW (11.6 - 14.8 %) 13.7 14.2 Neut % (Auto) (50 - 75 %) 69 74.6 Lymph % (Auto) (25 - 40 %) 23 17.8 [place] % (Auto) (3 - 14 %) 4 2.6 Eos % (Auto) (0 - 4 %) 3 4.8 Baso % (Auto) (0 - 2 %) 0 0.2 Band Neutrophils % (0 - 8 %) 1 Metamyelocytes % (0 - 1 %) 0 Myelocytes (0 - 1 %) 0 Other Cell Type 0 Plt Count, EDTA (150 - 400 K/uL) 259 262 RBC Morphology (2662 A) NORMOCYTIC PUBS MCHC (31 - 37 g/dL) 32 33 Assessment and Plan Problem List 1. Acute cholecystitis Status Acute Onset Date 12/27/16 Plan Patient has evidence of acute cholecystitis both radiologically and physical exam We'll continue with nothing by mouth status Patient will go for colonoscopic cholecystectomy shortly We'll discuss with surgery in regards to starting postoperative antibiotics 2. COPD (chronic obstructive pulmonary disease) Status Chronic Onset Date Unknown Plan Patient has a long-standing history of COPD We'll continue with patient's home inhalers Patient's oxygen requirements is 0 Patient is at a very low risk for respiratory palpitations during the surgery 3. Hypertension Status Chronic Onset Date Unknown Plan Patient has an established history of hypertension Patient's blood pressure has been well-controlled during the stay Continue with outpatient regimen 4. Anemia Status Acute Onset Date Unknown Plan Patient has evidence of normocytic anemia Evidence of iron deficiency We'll continue supplementation when patient is out of the operating room 5. Hyperglycemia Status Acute Onset Date Unknown Plan Patient's blood sugars have been well controlled Patient's age B one AC is 6.1 We'll continue with sliding scale coverage Once patient is able to tolerate diet will continue with low-salt low carbohydrate diet 6. Rhabdomyolysis Status Acute Onset Date Unknown Plan Resolved
--- NOTE | 2016-12-30 13:22 | DIAGNOSTIC IMAGING REPORT ---
PROCEDURE: XR INTRAOPERATIVE LAP BRIA INDICATION: IOC TECHNIQUE: Intraoperative fluoroscopy provided for an intraoperative cholangiogram following cholecystectomy. Total fluoroscopy time 3 minutes 9 seconds. Cumulative dose 117.13 mGy. COMPARISON: CT and ultrasound 12/29/2016 FINDINGS: Seven intraoperative fluoroscopic spot images of the right upper quadrant of the abdomen demonstrate initial cannulation of the cystic duct stump and opacification of the intrahepatic and extrahepatic biliary tree. There was extravasation of contrast at the chaya hepatis. No passage of contrast through the ampulla. Subsequent images demonstrate passage of a wire through the ampulla into the duodenum, a balloon raised across the ampulla, and subsequent passage of contrast into the duodenum. IMPRESSION: 1. Intraoperative cholangiogram with obstruction of the common duct at the ampulla, subsequent balloon plasty or balloon bougie of ampullary obstruction.
[2016-12-30] MEDS ORDERED: NORCO1 TA1 PO (15:42)
--- NOTE | 2016-12-30 15:43 | Provider's Discharge Care Plan ---
Problem, Goal, Plan Problem List 1. Acute cholecystitis 2. Choledocholithiasis
--- NOTE | 2016-12-30 15:43 | Provider's Discharge Care Plan ---
Problem, Goal, Plan Problem List 1. Acute cholecystitis 2. Choledocholithiasis
[2016-12-31 02:15] VITALS: BP 126/68
--- NOTE | 2016-12-31 04:58 | Progress Note ---
Subjective General Note Date: December 31, 2016 Admission Date: December 29, 2016 Hospital Day: 3 PCP: Merlene RUIZ Status: Inpatient, ACU Advanced Directive: FULL CODE Room: 204-A Admission History: The patient is a 76-year-old white male with a significant past medical history of COPD, degenerative joint disease, hypertension, allergic rhinitis, who presented to [facility] emergency department on the day of admission secondary to complaints of epigastric/lower chest pain. [facility] ER evaluation was consistent with acute cholecystitis, COPD, anemia, hypertension, degenerative joint disease , hyperglycemia, and allergic rhinitis. Secondary to the above, the patient was admitted by Dion Bunch M.D. surgical consultation by Dr. Rajan Renteria ( general surgery) for further evaluation and treatment. For other history present illness, past medical history, family history, social history, review of systems, and admission physical examination please see the patient's history and physical examination and ER visit note in the patient's medical record. Subjective: The patient states he is doing well today. Persistent right-sided abdominal/ back pain. No nausea or vomiting. Pain adequately controlled. Patient requests: None Medications and Allergies Medications Current Medications Sig/Veronica Start time Last Medication Dose Route Stop Time Status Admin Acetaminophen/ 15 ML Q3H PRN 12/30 1800 AC 12/30 Hydrocodone Bitart PO 2205 Pantoprazole Sodium 40 MG PPIBID 12/30 1600 AC 12/30 IV 1654 Dextrose/Sodium 1,000 ML ASDIRECTED 12/30 1245 AC 12/30 Chloride/Electrolyt IV 2204 Morphine Sulfate 2 MG Q30M PRN 12/30 1245 AC 12/30 IV 1953 Ondansetron HCl 4 MG Q4H PRN 12/30 1245 AC IV Patient Own See Dose RTBID 12/30 1999 AC 12/30 Medication Insts (1) IN 193 Patient Own See Dose RTBID 12/30 1999 AC 12/30 Medication Insts (2) IN 193 Clarify Med Order See Dose ASDIRECTED 12/29 1530 AC Insts (3) PO Dose Instructions: (1)Patient Own Medication: SEREVENT 50 MCG 1 PUFF (2)Patient Own Medication: FLOVENT DISKUS 50 1 PUFF (3)Clarify Med Order: PT MEDS IN PSB (OMNICELL) Allergies Coded Allergies: NKA (06/28/17) Reconcile Medications Scheduled Medications Fluticasone Propionate (Inhala (Flovent Diskus) 50 MCG AER 1 PUFF IN BID Asthma (Reported) Lisinopril (Lisinopril 2.5 MG) 2.5 MG TAB 2.5 MG PO DAILY (Reported) Loratadine (Loratadine 10 MG) 10 MG TAB 10 MG PO DAILY (Reported) Multiple Vitamin TAB 1 TAB PO DAILY (Reported) Salmeterol Xinafoate (Serevent Diskus) 50 MCG AER 2 PUFF IN BID asthma ( Reported) Salmeterol Xinafoate (Serevent Diskus) 50 MCG AER 50 IN Q2H (Reported) Scheduled PRN Medications Albuterol Sulfate (Albuterol Hfa) 60 DOSE INH 2 PUFF IN Q4H PRN Asthma ( Reported) Hydrocodone-Acetaminophen 5/325 MG ([place] 5/325 MG) 1 TAB TAB 1-2 TAB PO Q4H PRN for pain Miscellaneous Medications Nabumetone 500 MG TAB (Reported) Nabumetone 500 MG TAB arthritis (Reported) Physical Exam Vital Signs / I&Os Vital Signs Date Time Temp Pulse Resp B/P Pulse O2 O2 Flow FiO2 Ox Delivery Rate 12/31 0404 Nasal 3.0 Cannula 12/31 0314 75 23 91 3.0 12/31 0215 97.7 64 14 126/68 94 Nasal 2.0 Cannula 12/31 0109 71 10 96 3.0 12/30 2300 85 10 95 3.0 12/30 2232 98.1 83 26 131/68 95 Nasal 3.0 Cannula 12/30 2205 100.2 12/30 2130 89 12 96 3.0 12/30 1935 88 21 95 3.0 12/30 1824 98.4 93 16 150/84 92 Nasal 3.0 Cannula 12/30 1628 3.0 12/30 1623 87 16 141/67 95 Nasal 3.0 Cannula 12/30 1552 Nasal 4.0 Cannula 12/30 1515 86 16 150/68 94 12/30 1445 66 16 150/61 91 Nasal 4.0 Cannula 12/30 1430 69 16 153/71 96 Nasal 4.0 Cannula 12/30 1415 65 16 147/63 92 Nasal 4.0 Cannula 12/30 1403 76 23 153/67 93 Room Air 4.0 12/30 1346 98.8 66 20 153/67 95 Room Air 4.0 12/30 1342 67 15 146/60 92 12/30 1332 66 18 151/61 91 12/30 1329 73 16 92 12/30 1320 67 15 150/67 93 12/30 1315 97.7 71 18 155/74 91 12/30 1310 74 14 156/73 92 12/30 1305 77 20 163/76 92 12/30 1300 72 16 168/69 96 12/30 1255 74 14 165/68 97 12/30 1250 73 21 171/78 96 12/30 1245 73 16 163/69 94 12/30 1240 98.4 86 15 158/77 91 Mask 12.0 12/30 0940 Room Air 0.0 12/30 0708 98.8 65 20 143/69 95 Room Air 0.0 I&O 12/31 0000 12/30 1600 12/30 0800 Intake Total 865 1542 1627 Output Total 1107 362 2137 Balance -285 1122 587 General Appearance Alert, Oriented X3, Cooperative, No acute distress Lungs Normal air movement, Scattered rhonchi. Cardiovascular Regular rate and rhythm, Normal S1 and S2 Abdomen Distended. Mild right-sided tenderness to palpation. Bowel sounds within normal limits. Extremities No cyanosis, No clubbing, No edema Neurological Cranial nerves intact, Strength 5/5 x4 ext's, No lateralizing signs Psych/Mental Status Mental status normal, Mood normal LAB Results Laboratory Tests 12/31 12/30 K 0511 Chemistry Plasma Sodium (136 - 145 mmol/L) 144 Plasma Potassium (3.5 - 5.1 mmol/L) 3.9 Plasma Chloride (98 - 107 mmol/L) 110 CO2 (Enzymatic) (21 - 32 mmol/L) 25 BUN (7 - 18 mg/dL) 16 Creatinine (0.6 - 1.3 mg/dL) 1.1 Est GFR ( Amer) (mL/min) >60 Est GFR (Non-Af Amer) (mL/min) >60 Glucose (70 - 110 mg/dL) 94 Plasma Calcium (8.5 - 10.1 mg/dL) 8.2 Total Bilirubin (0.0 - 1.0 mg/dL) 0.6 AST (15 - 37 U/L) 103 ALT (12 - 78 U/L) 176 Alkaline Phosphatase (46 - 116 U/L) 58 Total Protein (6.4 - 8.2 g/dL) 6.6 Albumin (3.3 - 5.0 g/dL) 3.1 Amylase Cancelled Hematology WBC (4.5 - 11.5 K/uL) 9.4 RBC (4.50 - 5.90 M/uL) 3.77 Hgb (13.5 - 17.5 gm/dL) 11.8 Hct (41.0 - 53.0 %) 35.4 MCV (80 - 100 fL) 94 MCH (26 - 34 pg) 31 RDW (11.6 - 14.8 %) 14.2 Neut % (Auto) (50 - 75 %) 74.6 Lymph % (Auto) (25 - 40 %) 17.8 [place] % (Auto) (3 - 14 %) 2.6 Eos % (Auto) (0 - 4 %) 4.8 Baso % (Auto) (0 - 2 %) 0.2 Plt Count, EDTA (150 - 400 K/uL) 262 PUBS MCHC (31 - 37 g/dL) 33 Assessment and Plan Problem List 1. Acute cholecystitis Status Acute Onset Date 12/27/16 Plan -Status post cholecystectomy -Follow per surgery 2. COPD (chronic obstructive pulmonary disease) Status Chronic Onset Date Unknown Plan -Stable -O2 sats 95% on 3 L/m nasal cannula -Wean oxygen -Continue Serevent/Flovent 3. Hypertension Status Chronic Onset Date Unknown Plan -Blood pressure well controlled. -A.m. blood pressure 127/75 mmHg -Low-salt diet when taking well orally -The patient will be placed back on lisinopril 5 mg by mouth daily -Monitor 4. Anemia Status Acute Onset Date Unknown Plan -Patient with findings of mild anemia -H&H 11.3/34.5. -Iron studies, B12, folate within normal limits -Multivitamin one by mouth daily 5. Prerenal azotemia Status Acute Onset Date Unknown Plan -Resolved -BUN/creatinine-14/1.0 -Monitor 6. Choledocholithiasis Plan -Patient noted the time of surgery to have choledocholithiasis -Mild bump in liver enzymes with normal lipase -Monitor Current status: Fair, improved Anticipated discharge date: Anticipated discharge per surgery, 24 hours Anticipated discharge placement: Home Patient care time: Time in chart review, patient interview, physical exam, CPOE, and care documentation: 25 mins Visit to patient today: 1 Complexity of care: Moderate DVT prophylaxis: SCD E&M Codes Rounding: Inpt-Moderate/[id number]
[2016-12-31 07:18] VITALS: BP 127/75
[2016-12-31 10:20] VITALS: BP 143/77
--- NOTE | 2016-12-31 13:44 | Progress Note ---
Subjective General 79-year-old male status post cholecystectomy and common duct exploration. Postop day #1. Ambulatory. Passing flatus. Tolerating clear liquids by mouth Physical Exam Vital Signs / I&Os Vital Signs Date Time Temp Pulse Resp B/P Pulse O2 O2 Flow FiO2 Ox Delivery Rate 12/31 1020 98.1 56 20 143/77 95 Room Air 0.0 12/31 1003 16 95 Room Air 0.0 12/31 0945 Nasal 2.0 Cannula 12/31 0900 97 Room Air 1.0 12/31 0801 56 19 97 2.0 12/31 0741 96 Nasal 2.0 Cannula 12/31 0718 97.5 64 18 127/75 95 Nasal 3.0 Cannula 12/31 0503 57 18 95 3.0 12/31 0404 Nasal 3.0 Cannula 12/31 0314 75 23 91 3.0 12/31 0215 97.7 64 14 126/68 94 Nasal 2.0 Cannula 12/31 0109 71 10 96 3.0 12/30 2300 85 10 95 3.0 12/30 2232 98.1 83 26 131/68 95 Nasal 3.0 Cannula 12/30 2205 100.2 12/30 2130 89 12 96 3.0 12/30 1935 88 21 95 3.0 12/30 1824 98.4 93 16 150/84 92 Nasal 3.0 Cannula 12/30 1628 3.0 12/30 1623 87 16 141/67 95 Nasal 3.0 Cannula 12/30 1552 Nasal 4.0 Cannula 12/30 1515 86 16 150/68 94 12/30 1445 66 16 150/61 91 Nasal 4.0 Cannula 12/30 1430 69 16 153/71 96 Nasal 4.0 Cannula 12/30 1415 65 16 147/63 92 Nasal 4.0 Cannula 12/30 1403 76 23 153/67 93 Room Air 4.0 12/30 1346 98.8 66 20 153/67 95 Room Air 4.0 12/30 1342 67 15 146/60 92 I&O 12/30 0800 12/30 1600 12/31 0000 Intake Total 1627 1542 865 Output Total 5078 043 1382 Balance 587 1122 -285 General Appearance Oriented X3, Cooperative, No acute distress Abdomen umbilical trocar site stained. All trocar sites clean LAB Results Lipase 63. Postop Laboratory Tests 12/31 12/31 12/31 UNK 0500 0501 Chemistry Plasma Sodium (136 - 145 mmol/L) 144 Plasma Potassium (3.5 - 5.1 mmol/L) 4.1 Plasma Chloride (98 - 107 mmol/L) 110 CO2 (Enzymatic) (21 - 32 mmol/L) 25 BUN (7 - 18 mg/dL) 14 Creatinine (0.6 - 1.3 mg/dL) 1.0 Est GFR ( Amer) (mL/min) >60 Est GFR (Non-Af Amer) (mL/min) >60 Glucose (70 - 110 mg/dL) 135 Plasma Calcium (8.5 - 10.1 mg/dL) 8.1 Total Bilirubin (0.0 - 1.0 mg/dL) 0.6 AST (15 - 37 U/L) 255 ALT (12 - 78 U/L) 393 Alkaline Phosphatase (46 - 116 U/L) 107 Total Protein (6.4 - 8.2 g/dL) 6.3 Albumin (3.3 - 5.0 g/dL) 2.8 Amylase (25 - 115 U/L) Cancelled 36 Lipase (73 - 393 U/L) Cancelled 63 Hematology WBC (4.5 - 11.5 K/uL) 12.9 RBC (4.50 - 5.90 M/uL) 3.66 Hgb (13.5 - 17.5 gm/dL) 11.3 Hct (41.0 - 53.0 %) 34.7 MCV (80 - 100 fL) 95 MCH (26 - 34 pg) 31 RDW (11.6 - 14.8 %) 13.9 Neut % (Auto) (50 - 75 %) 81 Lymph % (Auto) (25 - 40 %) 16 [place] % (Auto) (3 - 14 %) 0 Eos % (Auto) (0 - 4 %) 0 Baso % (Auto) (0 - 2 %) 1 Band Neutrophils % (0 - 8 %) 2 Metamyelocytes % (0 - 1 %) 0 Myelocytes (0 - 1 %) 0 Other Cell Type 0 Plt Count, EDTA (150 - 400 K/uL) 258 Hypochromic-Microcytic 1+ PUBS MCHC (31 - 37 g/dL) 33 Assessment and Plan Problem List 1. Acute cholecystitis Status Acute Onset Date 12/27/16 Plan Stable for postoperative discharge. Followup with Dr. Renteria next week. Will advance diet over the next 48 hours. Activity level as tolerated.
== END 2016-12-31 14:00 | disposition home or self-care (01) | DRG 410 ==
LOC: ED SRH 23:54 → TRANS SRH 12-29 03:33 → ACUTE2 SRH 12-29 03:33 → TRANS SRH 12-29 03:33 → ACUTE2 SRH 12-29 03:33
PROVIDERS: ADMIT Surgery
PROC: 0F7 Hepatobiliary System and Pancreas, Dilation (ICD-10-PCS; principal; 2016-12-30 10:00)
PROC: 0FT44ZZ Resection of Gallbladder, Percutaneous Endoscopic Approach (ICD-10-PCS; principal; 2016-12-30 10:00)
PROC: BF101ZZ Fluoroscopy of Bile Ducts using Low Osmolar Contrast (ICD-10-PCS; principal; 2016-12-30 10:00)
DX: K80.62 Calculus of gallbladder and bile duct with acute cholecystitis without obstruction (principal); R73.9 Hyperglycemia, unspecified; I10 Essential (primary) hypertension; J44.9 Chronic obstructive pulmonary disease, unspecified; Z87.891 Personal history of nicotine dependence; D50.9 Iron deficiency anemia, unspecified; R39.2 Extrarenal uremia
CPT/HCPCS: 50002; 60001; 70002; 80102; 80212; 80248; 82794; 82807; 82952; 83338; 83339; 83348; 83587; 83920; 83937; 83982; 84038; 85241; 85244; 90001; 90004; 90074; 90098; 90100; 90155; 90616; 90617; 91004; 91286; 91295; 91320; 91504; 91505; 91556; 92235; 92530; 92610; 92668; 92670; 92720; 94001; 94060; 95059; 95061